=== PATIENT | female | born 1965 | race African-American/Black ===

== ENCOUNTER 2020-05-07 22:45 | Emergency (ER) | payer MEDICAID ==
[~2020-05-07] VITALS: Ht 165.1 cm; Wt 61.2 kg
[2020-05-07 23:29] VITALS: Ht 165.1 cm; Wt 61.2 kg
[2020-05-08 01:49] VITALS: BP 122/81
== END 2020-05-08 01:49 | disposition home or self-care (01) ==
LOC: ED 22:45
DX: F10.129 Alcohol abuse with intoxication, unspecified (principal); K29.00 Acute gastritis without bleeding; F17.210 Nicotine dependence, cigarettes, uncomplicated; Z71.6 Tobacco abuse counseling
CPT/HCPCS: 99406